=== PATIENT | male | born 1970 | race Caucasian/White ===

== ENCOUNTER → 2016-12-25 | Outpatient (CLI) | payer OTHER ==
[2016-12-25 11:54] LABS: Basophils # (A) 0.1 k/uL (0-0.2); Basophils % (A) 1 %; CH 28.1; CHCM 31.7; Eosinophils # (A) 0.1 k/uL (0-0.7); Eosinophils % (A) 1 %; HCT 48.2 % (39.0-53.0); HDW 2.63; Luc # (Auto) 0.18; Luc % (Auto) 2; Lymphocytes # (A) 3.6 k/uL (1.0-4.8); Lymphocytes % (A) 33 %; MCH 27.9 pg (25.0-35.0); MCHC 31.2 g/dL (31.0-37.0); MCV 89.3 fL (80.0-100.0); Mean Platelet Volume 8.4; Monocytes # (A) 0.5 k/uL (0-1.0); Monocytes % (A) 4 %; Neutrophils # (A) 6.5 k/uL (1.3-7.7); Neutrophils % (A) 59 %; RDW 14.3 % (11.5-15.5); WBC (Perox) 10.46
[2016-12-25 12:10] LABS: ALT 26 U/L (21-72); AST 22 U/L (17-59); Alkaline Phosphatase 68 U/L (38-126); Anion Gap 12 mmol/L; Blood Urea Nitrogen 12 mg/dL (9-20); Calcium 9.8 mg/dL (8.4-10.2); Carbon Dioxide 23 mmol/L (22-30); Chloride 108 mmol/L (98-107); Cholesterol 216 mg/dL (<200); Glucose 96 mg/dL (74-99); HDL Cholesterol 56 mg/dL (40-60); Non-African American GFR(MDRD) >60 (>60 ml/min/1.73 sqM); Sodium 143 mmol/L (137-145); Total Bilirubin 0.7 mg/dL (0.2-1.3); Triglycerides 159 mg/dL (<150)
[2016-12-25 12:40] LABS: Hepatitis B Surface Ag Index 0.08
[2016-12-25 12:57] LABS: Hepatitis C Virus IgG Index 0.04
[2016-12-25 13:03] LABS: Hepatitis C Virus IgG Ab Negative (Negative)
[2016-12-25 13:15] LABS: Rheumatoid Factor, Qnt <9 IU/mL (<12)
[2016-12-25 16:45] LABS: Treponemal Ab Non-Reactive (Non-Reactive)
[2016-12-25 16:49] LABS: ANA w/Reflex to Titer NEGATIVE (NEGATIVE)
[2016-12-26 06:45] LABS: HIV-1/HIV-2 Ab Screen NONREAC (NON REAC)
[2016-12-26 13:42] LABS: Hepatits C Virus RNA, Quant <12 IU/mL (<12); LOG HCV IU/mL <1.08 (<1.08)
== END | disposition home or self-care (01) ==
LOC: LABWHC1 11:28
PROVIDERS: ATTEND Family Medicine
DX: R10.9 Unspecified abdominal pain (principal); K59.09 Other constipation; G89.29 Other chronic pain; R12 Heartburn; L81.8 Other specified disorders of pigmentation; Z13.220 Encounter for screening for lipoid disorders
CPT/HCPCS: 36415; 80053; 80061; 84439; 84443; 85025; 86038; 86431; 86780; 86803; 87340; 87389; 87522